=== PATIENT | female | born 1965 | race Caucasian/White ===

== ENCOUNTER 2017-06-07 10:00 | Outpatient (CLI) | payer OTHER ==
--- NOTE | 2017-06-07 15:01 | Diagnostic Imaging Report ---
Indication: Abdominal pain and history of hepatitis C Technique: [place]-scale and duplex images of the upper abdomen were obtained Comparison: 06/02/2015 Findings: Gallbladder is unremarkable, without stones, wall thickening, nor pericholecystic fluid. Sonographic Gruber's sign is negative. Common bile duct measures 5 mm in diameter. No intrahepatic biliary ductal dilatation. Liver demonstrates normal echogenicity, no focal abnormality. No hepatic surface nodularity Portal vein and hepatic veins are patent. Pancreas is unremarkable. Spleen is unremarkable. Left kidney measures 10 cm in length. Right kidney measures 10.1 cm length. Both kidneys demonstrate normal echogenicity. There is no hydronephrosis. There are renal cysts bilaterally . Non-aneurysmal abdominal aorta . No significant interim change Impression: Essentially unremarkable exam Incidental finding bilateral renal cysts
== END 2017-06-07 12:00 | disposition home or self-care (01) ==
LOC: ULS 10:00
DX: R10.9 Unspecified abdominal pain (principal); Z86.19 Personal history of other infectious and parasitic diseases; Q61.02 Congenital multiple renal cysts
CPT/HCPCS: 76700

== ENCOUNTER 2018-06-23 12:09 | Outpatient (CLI) | payer OTHER ==
--- NOTE | 2018-06-23 13:23 | Diagnostic Imaging Report ---
Indication:Abdominal pain Technique: Grayscale and duplex Doppler imaging of the abdomen performed. Comparison: None Findings: The liver is unremarkable. The gallbladder is unremarkable. The demonstrated part of the pancreas, aorta and IVC show no abnormalities. Both kidneys appear unremarkable. The spleen is normal in size. There is no biliary ductal dilatation identified. Doppler evaluation of the main portal vein shows patency. There is no ascites. No hydronephrosis seen. CBD is 4 mm. Impression: No acute findings.
== END 2018-06-23 14:09 | disposition home or self-care (01) ==
LOC: ULS 12:09
DX: R10.9 Unspecified abdominal pain (principal)
CPT/HCPCS: 76700